=== PATIENT | male | born 1930 | race Hispanic/Latino ===

== ENCOUNTER → 2017-10-11 | Outpatient (CLI) | payer MEDICARE ==
[~2017-10-11] MED LIST: ATOR20TA65 PO; CHOL100018 PO; CYAN250014 PO; FINA5TAB41 PO; LANS30CA55 PO; LATA2.5D2 OP; LEVO50TA11 PO; LIOT5TAB8 PO; METO-391 PO; MINO100C2 PO; SACU1TAB PO; WARF-67 PO
== END | disposition home or self-care (01) ==
LOC: SLP 21:00
PROVIDERS: ATTEND Internal Medicine
DX: G47.33 Obstructive sleep apnea (adult) (pediatric) (principal)
CPT/HCPCS: 95811